=== PATIENT | female | born 1970 | race Caucasian/White ===

== ENCOUNTER → 2018-12-17 | Outpatient (CLI) | payer OTHER ==
[~2018-12-17] MED LIST: ACET-789 PO; ALPR.5T PO; DCS100C PO; IBP800T PO
--- NOTE | 2018-12-21 14:51 | Diagnostic Imaging Report ---
INDICATION: Routine screening. COMPARISON: 10/03/2015 and 09/07/2014. TECHNIQUE: 2D and 3D bilateral screening mammography was performed with CAD. FINDINGS: Scattered fibroglandular densities are identified bilaterally. The parenchymal pattern appears to be stable. No mass or malignant appearing microcalcifications are seen. The axillae are unremarkable. IMPRESSION: No mammographic features suspicious for malignancy are identified. ACR BI-RADS Category 1: Negative. Result letter will be mailed to the patient. Note: At least 10% of breast cancer is not imaged by mammography. Dictated by: Dictated on workstation # [id number]
== END ==
LOC: RAD 14:19
PROVIDERS: ATTEND Obstetrics & Gynecology
DX: Z12.31 Encounter for screening mammogram for malignant neoplasm of breast (principal)
CPT/HCPCS: 77067

== ENCOUNTER → 2021-07-15 | Outpatient (CLI) | payer OTHER ==
--- NOTE | 2021-07-15 17:07 | Diagnostic Imaging Report ---
INDICATION: Neck pain. AP, lateral, and odontoid views of the cervical spine are obtained. The cervical vertebrae are normal in height and alignment. There is no fracture or subluxation. There is no significant disc space narrowing. Facets are in good alignment. The odontoid is intact. IMPRESSION: Negative cervical spine series. Dictated by: Dictated on workstation # [id number]
== END ==
LOC: RAD 16:24
PROVIDERS: ATTEND Emergency Medicine
DX: M54.2 Cervicalgia (principal)
CPT/HCPCS: 72040

== ENCOUNTER 2021-09-25 09:32 | Outpatient (CLI) | payer OTHER ==
[~2021-09-25] VITALS: Ht 167.4 cm; Wt 88.6 kg
[2021-09-25] MEDS ORDERED: DICL75TA2 PO (10:09)
[2021-09-25] MEDS ORDERED: ALPR0.5T PO (10:09)
[2021-09-25] MEDS ORDERED: SIMV20TA26 PO (10:09)
[2021-09-25] MEDS ORDERED: METH-732 PO (10:09)
[2021-09-26] MEDS ORDERED: ACHD5005 PO (09:36)
== END 2021-09-25 10:18 | disposition home or self-care (01) ==
LOC: PREOP 09:32
PROVIDERS: ATTEND Surgery
DX: Z01.818 Encounter for other preprocedural examination (principal)

== ENCOUNTER 2021-09-26 09:08 | Day surgery (SDC) | payer OTHER ==
[2021-09-26] VITALS (11 sets, daily range): BP systolic 97–124; BP diastolic 53–82
[~2021-09-26] VITALS: Ht 167.4 cm; Wt 88.6 kg
[~2021-09-26 09:08] MED LIST changes: +ALPR0.5T PO; +DICL75TA2 PO; +METH-732 PO; +SIMV20TA26 PO
[2021-09-26] MEDS ORDERED: ceFAZolin 2 GM IV Premixed 50 ML IV ONE (09:30)
--- NOTE | 2021-09-26 09:34 | Progress Note-Pre Operative ---
Pre-Operative Progress Note H&P Reviewed The H&P was reviewed, patient examined and no changes noted. Date Seen by Provider: Sep 26, 2021 Time Seen by Provider: :30 Date H&P Reviewed: Sep 26, 2021 Time H&P Reviewed: 09:25 Pre-Operative Diagnosis: Symptomatic right posterior shoulder/back lipoma VIRGILIO OKEEFE APRN Sep 26, 2021 09:34
[2021-09-26] MEDS ORDERED: ACHD5005 PO (09:36)
--- NOTE | 2021-09-26 09:37 | Discharge Inst-Surgical ---
D/C Lap Instructions-KIDO Reconcile Patient Problems Problems Reviewed?: Yes New, Converted, or Re-Newed RX: RX on Chart Follow Up Appt in 2 weeks Activity as tolerated No driving for 24 hours No driving while on pain medications Incentive Spirometry use every 2 hours while awake Regular Diet Symptoms to Report: Fever over 101 degree F, Nausea/Vomiting Infection Signs and Symptoms to report: Increased redness, Foul odor of wound, Increased drainage Bathing instructions: May shower Operative Area Clean/Dry; Keep incision clean/dry If any problems/questions: Contact your physician or go to Emergency Room VIRGILIO OKEEFE APRN Sep 26, 2021 09:37
[2021-09-26] MEDS ORDERED: HYDROcodone/APAP 5 MG/325 MG (LORTAB) TAB PO ONE (09:45)
[2021-09-26] MEDS ORDERED: ACETAMINOPHEN 325 MG TABLET PO PRN (09:45)
[2021-09-26] MEDS ORDERED: morphine INJ 10 MG/ML 1ML (SYR OR VIAL) IVP PRN (09:45)
[2021-09-26] MEDS ORDERED: ONDANSETRON 4 MG/2 ML (SDV) Z0FRAN IVP PRN ×2 (09:45→12:45)
[2021-09-26] MEDS ORDERED: ceFAZolin 2 GM IV Premixed 50 ML ONE (09:52)
[2021-09-26] MEDS: LACTATED RINGERS 1,000 ML IV PRN ×2 (10:00→12:03)
[2021-09-26] MEDS ORDERED: MIDAZOLAM 2 MG/2 ML (VERSED) VIAL ONE (11:23)
[2021-09-26] MEDS ORDERED: fentaNYL INJ 100 MCG/2 ML AMP ONE (11:25)
[2021-09-26] MEDS ORDERED: LIDOCAINE/EPI 2% 1:100,00 (XYLOCAINE) 20 ML VIAL ONE (11:29)
--- NOTE | 2021-09-26 12:14 | Progress Note-Post Operative ---
Post-Operative Progess Note Surgeon (s)/Human Resources Supervisor (s) Surgeon PERLA SANTIAGO MD Human Resources Supervisor: sanjay abdi Pre-Operative Diagnosis Symptomatic right posterior shoulder/back lipoma Post-Operative Diagnosis subcutaneous and submuscular lipoma(6x5cm) Procedure & Operative Findings Date of Procedure 09/26/21 Procedure Performed/Findings excision back subcutaneous/submuscular lipoma(6x5cm). Anesthesia Type get with local Estimated Blood Loss Estimated blood loss (mL): minimal Specimens/Packing Specimens Removed back lipoma PERLA SANTIAGO MD Sep 26, 2021 12:14
[2021-09-26] MEDS ORDERED: proPOfol 200 MG/20 ML (DIPRIVAN) VIAL IV ONE (12:29)
[2021-09-26] MEDS ORDERED: SEVOFLURANE (ULTANE) 15 ML INHAL SOLN ONE (12:30)
[2021-09-26] MEDS ORDERED: LIDOCAINE PF 2% 5 ML (XYLOCAINE) VIAL ONE (12:30)
[2021-09-26] MEDS ORDERED: ONDANSETRON 4 MG/2 ML (SDV) Z0FRAN ONE (12:30)
[2021-09-26] MEDS ORDERED: fentaNYL INJ 100 MCG/2 ML AMP IVP ONE (12:45)
--- NOTE | 2021-09-26 12:45 | Anesthesia-General Post-Op ---
General Patient Condition Mental Status/LOC: Same as Preop Cardiovascular: Satisfactory Nausea/Vomiting: Absent Respiratory: Satisfactory Pain: Controlled Complications: Absent Post Op Complications Complications None Follow Up Care/Instructions Patient Instructions None needed. Anesthesia/Patient Condition Patient Condition Patient is doing well, no complaints, stable vital signs, no apparent adverse anesthesia problems. No complications reported per nursing. JOSEPH BARRAZA CRNA Sep 26, 2021 12:45
[2021-09-26] MEDS ORDERED: HYDROcodone/APAP 5 MG/325 MG (LORTAB) TAB ONE (13:59)
--- NOTE | 2021-09-26 19:44 | OPERATIVE REPORT ---
DATE OF SERVICE: 09/26/2021 ATTENDING PRIMARY CARE PHYSICIAN: Inocencio Doll DO PREOPERATIVE DIAGNOSIS: Symptomatic back lipoma. POSTOPERATIVE DIAGNOSIS: Symptomatic subcutaneous as well as submuscular back lipoma. Total dimension 6 x 5 cm in size. PROCEDURE: Excision of subcutaneous and submuscular lipoma, 6 x 5 cm in size. SURGEON: Irais Santiago MD. ASSOCIATE PROFESSOR OF RADIOLOGY: Jorge Guerra APRN. ANESTHESIA: General endotracheal with local. ESTIMATED BLOOD LOSS: Minimal. FINDINGS: Same as postoperative diagnosis. DISPOSITION: The patient tolerated the procedure well. INDICATIONS: The patient is a 50-year-old female referred over to us for symptomatic right posterior shoulder and back lipoma, which she had for the past 5 years; however, in the past six months, this has become significantly larger and painful and she does report that she does have numbness and tingling at times in her extremity. DESCRIPTION OF PROCEDURE: The patient was seen and found to have a significant size lesion, firm rubbery lesion consistent with a benign lipoma. Placed supine on the table. After adequate IV pain and sedative medications and general endotracheal intubation, the patient was placed in left lateral decubitus position. The back was then prepped and draped in standard surgical fashion. The previous incision site was then opened by removing the previous sututes and the lesion was identified and dissected out using blunt dissection as well as electrocautery. The lesion was subcutaneous. However, this did extend intramuscular between the extensor muscles. This was dissected out using blunt dissection as well as electrocautery with visualization of good hemostasis. The entire lesion was then measured out to be a 6 x 5 cm in size. Good hemostasis was observed and the subcutaneous tissue was then reapproximated using 3-0 Vicryl interrupted sutures. The skin was closed using 4-0 Monocryl running subcuticular suture. Wound was then cleaned and covered with Dermabond. The patient tolerated the procedure well. We will start IV oral pain medication as well as a clear liquid diet. Once she is tolerating clears, has good pain control with oral pain medications, ambulating well, we will discharge her home where she will be instructed to do no heavy lifting or exertion for the next two weeks; however, okay to do all her normal activities of daily living including showering. Job ID: [id number] DocumentID: [id number] Dictated Date: 09/26/2021 12:21:35 Correctional Guard Date: 09/26/2021 19:43:20 Dictated By: IRAIS SANTIAGO MD MTDD
== END 2021-09-26 14:40 ==
LOC: SDC 09:08
PROVIDERS: ATTEND Surgery
DX: D17.21 Benign lipomatous neoplasm of skin and subcutaneous tissue of right arm (principal)
CPT/HCPCS: 87081; 88304